=== PATIENT | male | born 1955 | race Caucasian/White ===

== ENCOUNTER 2019-03-22 18:29 | Emergency (ER) | payer MEDICARE, OTHER ==
[~2019-03-22] VITALS: Ht 175.3 cm; Wt 81.5 kg
[2019-03-22] MEDS ORDERED: DOXY100T (18:39)
[2019-03-22] MEDS ORDERED: ATOR1TAB21 (18:39)
[2019-03-22] MEDS ORDERED: AMLO5TAB6 (18:39)
[2019-03-22] MEDS ORDERED: GABA-845 (18:39)
[2019-03-22] MEDS ORDERED: CYCL10TA (18:39)
[2019-03-22] MEDS ORDERED: HYDR25TAB (18:39)
[2019-03-22 19:59] LABS: HEMATOCRIT 47.1 % (42.0-52.0); HEMOGLOBIN 15.6 g/dl (13.5-17.5); MEAN CORPUSCULAR HGB CONC 33.1 g/dl (32.0-36.5); MEAN CORPUSCULAR VOLUME 93.5 fl (80.0-96.0); PLATELET COUNT, AUTOMATED 331 10^3/uL (150-450); RED BLOOD COUNT 5.04 10^6/uL (4.30-6.10); WHITE BLOOD COUNT 9.7 10^3/uL (4.0-10.0)
[2019-03-22 20:08] LABS: BLOOD UREA NITROGEN 10 MG/DL (7-18); CALCIUM LEVEL 8.8 MG/DL (8.8-10.2); CARBON DIOXIDE LEVEL 30 MEQ/L (21-32); CHLORIDE LEVEL 100 MEQ/L (98-107); CREATININE FOR GFR 1.19 MG/DL (0.70-1.30); GLOMERULAR FILTRATION RATE > 60.0 (>49); GLUCOSE, FASTING 120 MG/DL (70-100); POTASSIUM SERUM 3.5 MEQ/L (3.5-5.1); SODIUM LEVEL 136 MEQ/L (136-145)
[2019-03-22 20:37] LABS: ERYTHROCYTE SEDIMENTATION RATE 17 mm/hr (0-20)
[2019-03-22 20:39] LABS: ALBUMIN 3.7 GM/DL (3.2-5.2); BILIRUBIN,DIRECT 0.2 MG/DL (0.0-0.2); BILIRUBIN,TOTAL 0.6 MG/DL (0.2-1.0); TOTAL PROTEIN 7.9 GM/DL (6.4-8.2)
[2019-03-22 22:49] LABS: BASO % 0.4 % (0.0-1.0); EOS # 0.1 10^3/uL (0.0-0.5); EOS % 1.4 % (0.0-3.0); LYMPH # 1.1 10^3/uL (1.5-5.0); LYMPH % 11.2 % (24.0-44.0); MONO # 0.7 10^3/uL (0.0-0.8); MONO % 7.3 % (0.0-5.0); NEUTROPHILS # 7.8 10^3/uL (1.5-8.5); NEUTROPHILS % 79.2 % (36.0-66.0)
[2019-03-22 22:52] LABS: PLATELET ESTIMATE NORMAL (NORMAL)
[2019-03-22] MEDS ORDERED: KETOROLAC 30 MG/ML VIAL (J1885) IV ONE (23:00)
[2019-03-22] MEDS ORDERED: KETO10TAB PO (23:07)
[2019-03-22] MEDS ORDERED: DALBAVANCIN 1,500 MG in D5W 250 ML IV ONE (23:30)
[2019-03-23 00:15] VITALS: BP 138/62
--- NOTE | 2019-03-23 08:32 | REP ---
Left elbow series: Four views. History: Pain. Fracture. Findings: Four views of the left elbow demonstrate tendon insertion site spurring at the medial and lateral epicondyles as well as in the acromion process. There is some coronoid process spurring as well. There is soft tissue swelling about the olecranon on lateral radiograph. The olecranon spur appears to be fragmented but this does not appear to be an acute fracture. No joint effusion is seen. Impression: Fragmented olecranon process spurring. Soft tissue swelling about the olecranon and dorsally over the proximal ulna. Medial and lateral epicondylar spurring and coronoid process spurring are also noted. Electronically Signed by Edgard Mack MD 03/23/2019 10:21 A
== END 2019-03-23 00:17 | disposition home or self-care (01) ==
LOC: M ED 18:29
DX: L03.112 Cellulitis of left axilla (principal); Z88.8 Allergy status to other drugs, medicaments and biological substances; Z79.899 Other long term (current) drug therapy
CPT/HCPCS: 73080; 80048; 80076; 83605; 85027; 85652; 86140; 87040; 96365; 96374; 99284; J0875; J1885

== ENCOUNTER 2019-10-16 03:25 | Emergency (ER) | payer MEDICARE ==
[~2019-10-16] VITALS: Ht 175.3 cm; Wt 84.5 kg
[~2019-10-16 03:25] MED LIST: AMLO1TAB24; ATOR1TAB21; CYCL-707; DOXY100T; GABA-845; HYDR-3490; KETO10TAB PO
[2019-10-16 03:47] LABS: BASO % 0.2 % (0.0-1.0); EOS # 0.3 10^3/uL (0.0-0.5); EOS % 2.9 % (0.0-3.0); HEMOGLOBIN 13.4 g/dl (13.5-17.5); LYMPH # 1.3 10^3/uL (1.5-5.0); MEAN CORPUSCULAR HEMOGLOBIN 30.3 pg (27.0-33.0); MEAN CORPUSCULAR HGB CONC 33.5 g/dl (32.0-36.5); MEAN CORPUSCULAR VOLUME 90.5 fl (80.0-96.0); MONO # 0.8 10^3/uL (0.0-0.8); NEUTROPHILS # 6.2 10^3/uL (1.5-8.5); NEUTROPHILS % 72.6 % (36.0-66.0); PLATELET COUNT, AUTOMATED 279 10^3/uL (150-450); RED BLOOD COUNT 4.42 10^6/uL (4.30-6.10); WHITE BLOOD COUNT 8.6 10^3/uL (4.0-10.0)
[2019-10-16 04:30] LABS: BLOOD UREA NITROGEN 12 MG/DL (7-18); CALCIUM LEVEL 8.4 MG/DL (8.8-10.2); CARBON DIOXIDE LEVEL 27 MEQ/L (21-32); CHLORIDE LEVEL 107 MEQ/L (98-107); CK-MB VALUE MASS 1.8 NG/ML (<3.6); CPK CREATINE PHOSPHOKINASE 128 U/L (39-308); CREATININE FOR GFR 1.04 MG/DL (0.70-1.30); GLOMERULAR FILTRATION RATE > 60.0 (>49); GLUCOSE, FASTING 99 MG/DL (70-100); MB/CK RELATIVE INDEX 1.41 (< OR =4); POTASSIUM SERUM 3.3 MEQ/L (3.5-5.1); SODIUM LEVEL 139 MEQ/L (136-145); TROPONIN I < 0.02 NG/ML (< 0.10)
[2019-10-16] MEDS ORDERED: NS 500 ML IV ONE (05:00)
[2019-10-16] MEDS ORDERED: KETOROLAC 30 MG/ML 1ML VIAL IV ONE (05:00)
[2019-10-16] MEDS ORDERED: ISOVUE-370 76% 100ML VIAL As Ordered ONE (05:11)
[2019-10-16 05:20] LABS: INR 1.08; PROTHROMBIN TIME 13.7 SECONDS (11.8-14.0)
[2019-10-16 05:30] VITALS: BP 163/89
--- NOTE | 2019-10-16 05:50 | REPVR ---
PROCEDURE INFORMATION: Exam: CT Angiography Chest With Contrast Exam date and time: 10/16/2019 5:27 AM Age: 64 years old Clinical indication: Chest pain; Additional info: Cp TECHNIQUE: Imaging protocol: Computed tomographic angiography of the chest with intravenous contrast. 3D rendering: MIP and/or 3D reconstructed images were created by the technologist. Radiation optimization: All CT scans at this facility use at least one of these dose optimization techniques: automated exposure control; mA and/or kV adjustment per patient size (includes targeted exams where dose is matched to clinical indication); or iterative reconstruction. Contrast material: ISO 370; Contrast volume: 75 ml; Contrast route: IV; COMPARISON: CR PORTABLE CHEST X-RAY 10/16/2019 3:34 AM FINDINGS: Pulmonary arteries: The main pulmonary artery measures 26 mm. No pulmonary embolism is identified. Aorta: The ascending thoracic aorta measures 37 mm. Lungs: Minimal bibasilar fibro-atelectatic change and question of minimal infiltrates in the posterior costophrenic sulci. Pleural space: Unremarkable. No pneumothorax. No pleural effusion. Heart: Unremarkable. No cardiomegaly. No pericardial effusion. Lymph nodes: Unremarkable. No enlarged lymph nodes. Bones/joints: Unremarkable. No acute fracture. Soft tissues: Unremarkable. IMPRESSION: 1. Minimal bibasilar fibro-atelectatic change the and question of minimal infiltrates posteriorly inferiorly. 2. Otherwise negative CTA chest. No pulmonary embolism is identified. Electronically signed by: Travis Waters On 10/16/2019 05:50:11 AM
[2019-10-16 05:53] LABS: CK-MB VALUE MASS 1.2 NG/ML (<3.6); CPK CREATINE PHOSPHOKINASE 141 U/L (39-308); MB/CK RELATIVE INDEX 0.85 (< OR =4); TROPONIN I < 0.02 NG/ML (< 0.10)
[2019-10-16] MEDS ORDERED: KETO10TAB PO (06:15)
--- NOTE | 2019-10-16 09:53 | REP ---
CHEST, SINGLE VIEW: Single view of the chest is performed and compared to prior study of 04/15/2007. Bibasilar fibroatelectatic change is noted. There is mild elevation of the left hemidiaphragm. No consolidating infiltrate is seen. The heart is not enlarged. Mediastinal silhouette is unremarkable. A metallic screw is seen in the right glenoid. IMPRESSION: Mild bibasilar fibroatelectatic change. No evidence of acute infiltrate. Electronically Signed by Олег Forrester MD 10/16/2019 10:27 A
--- NOTE | 2019-10-16 19:51 | ECGEPIP ---
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
== END 2019-10-16 06:47 | disposition home or self-care (01) ==
LOC: M ED 03:25
DX: R07.89 Other chest pain (principal); I10 Essential (primary) hypertension; E78.5 Hyperlipidemia, unspecified; R01.1 Cardiac murmur, unspecified; Z79.899 Other long term (current) drug therapy; Z88.8 Allergy status to other drugs, medicaments and biological substances; F17.210 Nicotine dependence, cigarettes, uncomplicated
CPT/HCPCS: 71045; 71275; 80048; 82550; 82553; 84484; 85025; 85610; 85730; 93005; 93041; 94760; 96361; 96374; 99285; J1885; Q9967

== ENCOUNTER → 2020-05-16 | Outpatient (CLI) | payer MEDICARE ==
[~2020-05-16] MED LIST changes: -HYDR-3490; +HYDR25TAB
[2020-05-16 16:49] LABS: C REACTIVE PROTEIN QUANTITATIV 0.41 MG/DL (0.00-0.30); RHEUMATOID FACTOR QUANT < 10.0 IU/ML (<15.0); URIC ACID 7.3 MG/DL (3.5-7.2)
== END ==
LOC: M LAB 15:18
PROVIDERS: ATTEND Nurse Practitioner Family
DX: M79.641 Pain in right hand (principal); M79.642 Pain in left hand; M89.29 Other disorders of bone development and growth, multiple sites

== ENCOUNTER 2020-08-15 06:21 | Emergency (ER) | payer MEDICARE ==
[~2020-08-15] VITALS: Ht 175.3 cm; Wt 91.2 kg
[~2020-08-15 06:21] MED LIST changes: +HYDR-3490; -HYDR25TAB
[2020-08-15] MEDS ORDERED: NS 1,000 ML IV SCH (07:13)
[2020-08-15] MEDS ORDERED: MORPHINE 2 MG/ML 1ML VIAL (J2270) IV ONE (07:15)
[2020-08-15] MEDS ORDERED: ONDANSETRON 4MG/2ML VIAL IV ONE (07:15)
[2020-08-15 07:45] LABS: BASO % 0.1 % (0.0-1.0); EOS % 0.1 % (0.0-3.0); HEMATOCRIT 43.7 % (42.0-52.0); HEMOGLOBIN 14.9 g/dl (13.5-17.5); LYMPH # 0.8 10^3/uL (1.5-5.0); LYMPH % 11.6 % (24.0-44.0); MEAN CORPUSCULAR HGB CONC 34.1 g/dl (32.0-36.5); MEAN CORPUSCULAR VOLUME 87.9 fl (80.0-96.0); MONO # 0.3 10^3/uL (0.0-0.8); MONO % 4.8 % (2.0-8.0); NEUTROPHILS # 5.7 10^3/uL (1.5-8.5); NEUTROPHILS % 83.3 % (36.0-66.0); PLATELET COUNT, AUTOMATED 261 10^3/uL (150-450); RED BLOOD COUNT 4.97 10^6/uL (4.30-6.10); WHITE BLOOD COUNT 6.8 10^3/uL (4.0-10.0)
[2020-08-15 08:07] LABS: INR 0.97; PROTHROMBIN TIME 13.1 SECONDS (12.5-14.3)
[2020-08-15 08:08] LABS: PARTIAL THROMBOPLASTIN TIME 33.5 SECONDS (24.2-38.5)
[2020-08-15 08:13] LABS: ALBUMIN 4.1 GM/DL (3.2-5.2); ALT/SGPT 36 U/L (12-78); BILIRUBIN,DIRECT 0.2 MG/DL (0.0-0.2); BILIRUBIN,TOTAL 0.4 MG/DL (0.2-1.0); CPK CREATINE PHOSPHOKINASE 467 U/L (39-308); LIPASE 126 U/L (73-393); TOTAL PROTEIN 7.7 GM/DL (6.4-8.2); TROPONIN I < 0.02 NG/ML (< 0.10)
--- NOTE | 2020-08-15 08:28 | REP ---
INDICATION: SBO. COMPARISON: CT and AP chest 10/16/2019 TECHNIQUE: PA chest with two-view abdomen FINDINGS: PA chest: Lungs are adequately inflated. There is linear fibrotic change at the left lateral base and bibasilar fibro atelectatic change stable from the previous study. No pleural effusion or dense consolidation. No parenchymal mass. Some minor apical pleural scarring noted. Heart size not grossly enlarged. Epicardial fat pad prominent on the left as on CT. No chamber enlargement, vascular redistribution or pulmonary edema. The aorta is mildly tortuous but without aneurysm. Airway intact. No widening of the mediastinum. Hilar contours fairly symmetric and normal. There are degenerative changes in the spine and shoulders. No free air under the diaphragm. Flat and upright abdomen: Moderate retained stool in the right and transverse colon scattered stool in the left colon and rectosigmoid. I do not see significant constipation. Small bowel loops are fluid-filled. I do not see dilated loops or air-fluid levels on the upright view. No evidence of free air. Bones show some degenerative changes in the lumbar and lower thoracic endplates. Minor degenerative changes of the hips and lower lumbar facets. Few pelvic phleboliths are noted. No definite calcifications over the renal fossae, expected course of the ureters or bladder. IMPRESSION: 1. Mild retained stool throughout, most in the right transverse colon but no abnormal distension. I would regard this is normal. Small bowel loops are fluid-filled without dilatation or air-fluid levels. This may reflect some gastroenteritis or mild ileus. No free air. 2. Basilar fibro atelectatic changes and some linear fibrosis left lateral base unchanged. No acute infiltrate, cardiomegaly, edema, pleural effusion or other significant finding in the chest. <Electronically signed by Rian More > 08/15/20 [id number]
[2020-08-15] MEDS ORDERED: LIDOCAINE 2% 5ML JELLY UROJET TOP ONE (08:30)
[2020-08-15] MEDS ORDERED: FLOM0.4C39 PO (10:52)
[2020-08-15 11:34] VITALS: BP 142/89
== END 2020-08-15 11:15 | disposition home or self-care (01) ==
LOC: M ED 06:21
DX: R33.9 Retention of urine, unspecified (principal); I10 Essential (primary) hypertension; E78.5 Hyperlipidemia, unspecified; Z79.899 Other long term (current) drug therapy
CPT/HCPCS: 51702; 74021; 80047; 80076; 82550; 82553; 83690; 84484; 85025; 85610; 85730; 86850; 86900; 86901; 87086; 93041; 96361; 96374; 96375; 99285; J2270; J2405

== ENCOUNTER 2020-09-14 19:26 | Emergency (ER) | payer MEDICARE ==
[~2020-09-14] VITALS: Ht 175.3 cm; Wt 86.3 kg
[~2020-09-14 19:26] MED LIST changes: +FLOM0.4C39 PO
[2020-09-14] MEDS ORDERED: FINA5TAB2 (19:42)
[2020-09-14 20:05] LABS: BASO % 0.5 % (0.0-1.0); EOS # 0.2 10^3/uL (0.0-0.5); EOS % 3.4 % (0.0-3.0); HEMATOCRIT 39.5 % (42.0-52.0); HEMOGLOBIN 13.3 g/dl (13.5-17.5); LYMPH # 1.7 10^3/uL (1.5-5.0); LYMPH % 30.4 % (24.0-44.0); MEAN CORPUSCULAR HEMOGLOBIN 29.7 pg (27.0-33.0); MEAN CORPUSCULAR HGB CONC 33.7 g/dl (32.0-36.5); MEAN CORPUSCULAR VOLUME 88.2 fl (80.0-96.0); MONO # 0.6 10^3/uL (0.0-0.8); MONO % 11.5 % (2.0-8.0); PLATELET COUNT, AUTOMATED 307 10^3/uL (150-450); RED BLOOD COUNT 4.48 10^6/uL (4.30-6.10); WHITE BLOOD COUNT 5.6 10^3/uL (4.0-10.0)
[2020-09-14] MEDS ORDERED: COMBIVENT RESPIMAT 100-20MCG INHALER 4GM INH ONE (20:10)
[2020-09-14] MEDS ORDERED: ISOVUE-370 76% 100ML VIAL As Ordered ONE (20:18)
[2020-09-14 20:19] LABS: INR 1.08; PROTHROMBIN TIME 14.2 SECONDS (12.5-14.3)
--- NOTE | 2020-09-14 20:34 | REPVR ---
PROCEDURE INFORMATION: Exam: XR Chest Exam date and time: 09/14/2020 8:17 PM Age: 65 years old Clinical indication: Other: Chest pain TECHNIQUE: Imaging protocol: XR of the chest. Views: 1 view. COMPARISON: CR Abdomen,Flat Upright,PA CHEST 08/15/2020 8:00 AM FINDINGS: Lungs: Unremarkable. No consolidation. Pleural spaces: Unremarkable. No pleural effusion. No pneumothorax. Heart/Mediastinum: Unremarkable. No cardiomegaly. Bones/joints: Unremarkable. IMPRESSION: No acute findings. Electronically signed by: aR Martin On 09/14/2020 20:33:37 PM
[2020-09-14 20:43] LABS: ALBUMIN 3.7 GM/DL (3.2-5.2); ALT/SGPT 28 U/L (12-78); BILIRUBIN,DIRECT 0.1 MG/DL (0.0-0.2); BILIRUBIN,TOTAL 0.3 MG/DL (0.2-1.0); BLOOD UREA NITROGEN 20 MG/DL (7-18); CALCIUM LEVEL 8.7 MG/DL (8.8-10.2); CARBON DIOXIDE LEVEL 29 MEQ/L (21-32); CHLORIDE LEVEL 106 MEQ/L (98-107); CK-MB VALUE MASS 1.7 NG/ML (<3.6); CPK CREATINE PHOSPHOKINASE 208 U/L (39-308); CREATININE FOR GFR 1.21 MG/DL (0.70-1.30); ETHYL ALCOHOL (ETHANOL) < 0.003 % (0.000-0.010); GLOMERULAR FILTRATION RATE > 60.0 (>49); GLUCOSE, FASTING 115 MG/DL (70-100); LIPASE 90 U/L (73-393); MB/CK RELATIVE INDEX 0.82 (< OR =4); POTASSIUM SERUM 3.1 MEQ/L (3.5-5.1); SODIUM LEVEL 142 MEQ/L (136-145); TOTAL PROTEIN 7.3 GM/DL (6.4-8.2); TROPONIN I < 0.02 NG/ML (< 0.10)
--- NOTE | 2020-09-14 20:59 | REPVR ---
PROCEDURE INFORMATION: Exam: CTA Chest With Contrast Exam date and time: 09/14/2020 8:34 PM Age: 65 years old Clinical indication: Chest pain; Other: Pleuritic; Additional info: Left sided pleuritic chest pain TECHNIQUE: Imaging protocol: Computed tomographic angiography of the chest with contrast. 3D rendering (Not supervised by radiologist): MIP and/or 3D reconstructed images were created by the technologist. Radiation optimization: All CT scans at this facility use at least one of these dose optimization techniques: automated exposure control; mA and/or kV adjustment per patient size (includes targeted exams where dose is matched to clinical indication); or iterative reconstruction. Contrast material: ISOVUE 370; Contrast volume: 75 ml; Contrast route: INTRAVENOUS (IV); COMPARISON: CT ANGIO CHEST 10/16/2019 5:07 AM FINDINGS: Pulmonary arteries: Normal. No pulmonary emboli. Aorta: There is fusiform dilatation of the ascending thoracic aorta which measures 4 cm. maximally. There is no dissection or saccular component. There is mild atherosclerosis in the thoracic aorta. Lungs: 5 mm noncalcified nodule adjacent to the major fissure right lower lobe. 3 mm subpleural noncalcified nodule right lower lobe. Findings likely postinflammatory. Lungs otherwise clear. Pleural spaces: Unremarkable. No pneumothorax. No pleural effusion. Heart: There is mild atherosclerotic calcification of the coronary arteries. Lymph nodes: Unremarkable. No enlarged lymph nodes. Bones/joints: Arthropathic changes right glenohumeral joint. There is endplate irregularity at the 3 through 5th costochondral junctions on the left possibly indicating costochondritis, acute or chronic. The spine demonstrates mild degenerative changes. Soft tissues: Unremarkable. IMPRESSION: 1. 5 mm noncalcified nodule adjacent to the major fissure right lower lobe. 3 mm subpleural noncalcified nodule right lower lobe. Findings likely postinflammatory. For patients at low risk (minimal or absent history of smoking and of other known risk factors), no routine follow-up is indicated. For patients at high risk (history of smoking or of other known risk factors), consider optional CT Chest at 12 months. (Reference: Candido) 2. There is endplate irregularity at the 3 through 5th costochondral junctions on the left possibly indicating costochondritis, acute or chronic. 3. There is fusiform dilatation of the ascending thoracic aorta which measures 4 cm. maximally. There is no dissection or saccular component. 4. There are no pulmonary emboli. REFERENCES: Candido Stuart, et al. Guidelines for Management of Incidental Pulmonary Nodules Detected on CT Images: From the Fleischner Society 2017. Radiology. 2017;284(1):228-243. Electronically signed by: Ra Martin On 09/14/2020 20:59:15 PM
[2020-09-14] MEDS ORDERED: KETOROLAC 30 MG/ML 1ML VIAL IV ONE (22:15)
[2020-09-14] MEDS ORDERED: NAPR-837 PO (22:15)
[2020-09-14] MEDS ORDERED: POTASSIUM CHLORIDE 10 MEQ SR TABLET PO ONE (22:15)
[2020-09-14 22:44] VITALS: BP 123/95
--- NOTE | 2020-09-15 06:24 | ECGEPIP ---
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
--- NOTE | 2020-09-15 07:10 | ED PDOC ---
Post-Departure [facility] faxed formal report of cta chest for fu Luis Alfredo Hebert MD September 15, 2020 07:10
== END 2020-09-14 23:05 | disposition home or self-care (01) ==
LOC: M ED 19:26
DX: M94.0 Chondrocostal junction syndrome [Tietze] (principal); R91.8 Other nonspecific abnormal finding of lung field; I11.9 Hypertensive heart disease without heart failure; Z87.891 Personal history of nicotine dependence
CPT/HCPCS: 71045; 71275; 80047; 80048; 80076; 82077; 82550; 82553; 83690; 84484; 85025; 85610; 87798; 93005; 93041; 94760; 96374; 99285; J1885; Q9967

== ENCOUNTER → 2020-10-01 | Outpatient (CLI) | payer MEDICARE ==
[~2020-10-01] MED LIST changes: +FINA5TAB2; +GABA-283; -GABA-845; +NAPR-837 PO
== END ==
LOC: M LAB 08:20
PROVIDERS: ATTEND Urology
DX: Z12.5 Encounter for screening for malignant neoplasm of prostate (principal)
CPT/HCPCS: 36415; G0103

== ENCOUNTER → 2022-08-04 | Outpatient (CLI) | payer MEDICARE | LOC: M PLALAB 12:46 | PROVIDERS: ATTEND Physician Assistant | DX: Z12.5 Encounter for screening for malignant neoplasm of prostate (principal) | CPT/HCPCS: 36415; G0103 ==

== ENCOUNTER → 2022-10-07 | Outpatient (CLI) | payer MEDICARE ==
[2022-10-07 17:26] LABS: CALCIUM LEVEL 8.7 MG/DL (8.3-10.6); CREATININE FOR GFR 1.29 MG/DL (0.70-1.30); POTASSIUM SERUM 4.4 MMOL/L (3.5-5.1)
== END ==
LOC: M PLALAB 14:09
PROVIDERS: ATTEND Pediatrics
DX: E87.6 Hypokalemia (principal)

== ENCOUNTER 2024-01-09 06:52 | Emergency (ER) | payer MEDICARE, OTHER ==
[~2024-01-09] VITALS: Ht 172.7 cm; Wt 79.9 kg
[~2024-01-09 06:52] MED LIST changes: -GABA-283; +GABA-284
[2024-01-09] MEDS: ACETAMINOPHEN TAB 650MG DOSE (2X325MG) PO ONE (07:58)
[2024-01-09] MEDS ORDERED: DOXY100C82 PO (09:16)
[2024-01-09 09:40] VITALS: BP 117/80; TEMP 98.8; O2SAT 95
== END 2024-01-09 09:42 | disposition home or self-care (01) ==
LOC: M ED 06:52
DX: J18.1 Lobar pneumonia, unspecified organism (principal); I10 Essential (primary) hypertension; N40.0 Benign prostatic hyperplasia without lower urinary tract symptoms; Z87.891 Personal history of nicotine dependence; Z79.02 Long term (current) use of antithrombotics/antiplatelets; Z79.2 Long term (current) use of antibiotics; Z79.899 Other long term (current) drug therapy

== ENCOUNTER 2024-01-16 06:45 | Emergency (ER) | payer OTHER, MEDICAID ==
[~2024-01-16] VITALS: Ht 175.3 cm; Wt 77.8 kg
[~2024-01-16 06:45] MED LIST changes: -AMLO1TAB24; +AMLO1TAB24 PO; -ATOR1TAB21; +ATOR1TAB21 PO; -CYCL-707; +CYCL-707 PO; +DOXY100C82 PO; -FINA5TAB2; +FINA5TAB2 PO; -HYDR-3490; +HYDR-3490 PO
[2024-01-16 09:31] LABS: VENOUS BASE EXCESS -0.5 (-2.0-2.0); VENOUS HCO3 27.3 MMOL/L (23.0-27.0); VENOUS O2 SATURATION 38.4 % (60.0-80.0); VENOUS PARTIAL PRESSURE CO2 56.8 mmHg (38.0-50.0); VENOUS PARTIAL PRESSURE O2 24.1 mmHg (30.0-50.0); VENOUS PH 7.299 UNITS (7.330-7.430); VENOUS STANDARD HCO3 22.6 MMOL/L
[2024-01-16 09:44] LABS: BASO % 0.6 % (0.0-1.0); EOS # 0.2 10^3/uL (0.0-0.5); EOS % 3.9 % (0.0-3.0); HEMATOCRIT 45.8 % (42.0-52.0); LYMPH # 1.8 10^3/uL (1.5-5.0); LYMPH % 34.6 % (24.0-44.0); MEAN CORPUSCULAR HGB CONC 32.8 g/dl (32.0-36.5); MEAN CORPUSCULAR VOLUME 91.6 fl (80.0-96.0); MONO # 0.5 10^3/uL (0.0-0.8); NEUTROPHILS # 2.6 10^3/uL (1.5-8.5); NEUTROPHILS % 50.9 % (36.0-66.0); PLATELET COUNT, AUTOMATED 490 10^3/uL (150-450); WHITE BLOOD COUNT 5.1 10^3/uL (4.0-10.0)
[2024-01-16] MEDS: NS 500 ML IV ONE (09:51)
[2024-01-16 10:04] LABS: ALBUMIN 3.6 G/DL (3.2-5.2); ALKALINE PHOSPHATASE 108 U/L (46-116); ALT/SGPT 103 U/L (7.0-40); AST/SGOT 39 U/L (<34); BILIRUBIN,DIRECT 0.2 MG/DL (<0.4); BILIRUBIN,TOTAL 0.4 MG/DL (0.3-1.2); BLOOD UREA NITROGEN 17 MG/DL (9-23); CALCIUM LEVEL 9.5 MG/DL (8.3-10.6); CARBON DIOXIDE LEVEL 28 MMOL/L (20-31); CHLORIDE LEVEL 107 MMOL/L (98-107); CREATININE FOR GFR 0.98 MG/DL (0.70-1.30); GLOMERULAR FILTRATION RATE > 60.0 (>49); GLUCOSE, FASTING 85 MG/DL (74-106); POTASSIUM SERUM 4.5 MMOL/L (3.5-5.1); SODIUM LEVEL 141 MMOL/L (136-145); TOTAL PROTEIN 7.7 G/DL (5.7-8.2)
[2024-01-16 10:12] LABS: ABG BASE EXCESS -0.5 (-2.0-2.0); ABG HCO3 23.4 MMOL/L (22.0-26.0); ABG O2 SATURATION 95.5 % (95.0-99.0); ABG PARTIAL PRESSURE CO2 36.1 mmHg (35.0-45.0); ABG PARTIAL PRESSURE O2 80.8 mmHg (75.0-100.0); ABG STANDARD HCO3 24.1 MMOL/L. (22.0-26.0); ABG TOTAL CO2 24.5 MMOL/L (23.0-31.0)
[2024-01-16] MEDS: IPRATROPIUM 0.5MG/ALBUTEROL 2.5MG INH SOL UD 3ML (DUONEB) NEB ONE (10:20)
[2024-01-16] MEDS ORDERED: ISOVUE-370 76% 100ML VIAL As Ordered ONE (11:10)
[2024-01-16 12:40] VITALS: O2SAT 97
[2024-01-16] MEDS ORDERED: MAG SULF 1GM/100ML (MAG RUN) 1 GM in IV 1 EA IV ONE (13:25)
[2024-01-16] MEDS ORDERED: LEVO750T14 PO (13:37)
[2024-01-16] MEDS: MAG SULF 1GM/100ML (MAG RUN) 1 GM in IV 1 EA IV ONE (13:50)
[2024-01-16 14:45] VITALS: O2SAT 99
[2024-01-16 14:46] VITALS: BP 131/73; TEMP 97.6
== END 2024-01-16 15:12 | disposition home or self-care (01) ==
LOC: M ED 06:45
DX: J18.9 Pneumonia, unspecified organism (principal); E83.42 Hypomagnesemia; I10 Essential (primary) hypertension; E78.5 Hyperlipidemia, unspecified; N40.0 Benign prostatic hyperplasia without lower urinary tract symptoms; M79.7 Fibromyalgia; Z87.891 Personal history of nicotine dependence; Z79.02 Long term (current) use of antithrombotics/antiplatelets; Z79.899 Other long term (current) drug therapy; Z79.2 Long term (current) use of antibiotics
CPT/HCPCS: 36600; 71046; 71275; 80048; 80076; 82803; 83605; 83735; 83880; 85025; 87040; 87486; 87581; 87633; 87798; 93005; 93041; 94640; 94760; 96361; 96365; 99285; J3475; Q9967

== ENCOUNTER 2024-01-22 19:56 | Observation (INO) | payer OTHER, MEDICAID ==
[~2024-01-22] VITALS: Ht 172.7 cm; Wt 75.1 kg
[~2024-01-22 19:56] MED LIST changes: +LEVO750T14 PO
[2024-01-22 22:03] LABS: BASO % 0.6 % (0.0-1.0); EOS # 0.1 10^3/uL (0.0-0.5); EOS % 1.6 % (0.0-3.0); HEMATOCRIT 45.4 % (42.0-52.0); HEMOGLOBIN 15.2 g/dl (13.5-17.5); LYMPH # 1.8 10^3/uL (1.5-5.0); LYMPH % 28.2 % (24.0-44.0); MEAN CORPUSCULAR HEMOGLOBIN 30.5 pg (27.0-33.0); MEAN CORPUSCULAR HGB CONC 33.5 g/dl (32.0-36.5); MEAN CORPUSCULAR VOLUME 91.2 fl (80.0-96.0); MONO # 0.6 10^3/uL (0.0-0.8); MONO % 9.2 % (2.0-8.0); NEUTROPHILS # 3.8 10^3/uL (1.5-8.5); NEUTROPHILS % 60.2 % (36.0-66.0); PLATELET COUNT, AUTOMATED 484 10^3/uL (150-450); RED BLOOD COUNT 4.98 10^6/uL (4.30-6.10); WHITE BLOOD COUNT 6.3 10^3/uL (4.0-10.0)
[2024-01-22 22:34] LABS: CPK CREATINE PHOSPHOKINASE 55 U/L (46-171)
[2024-01-22 22:35] LABS: ALBUMIN 3.8 G/DL (3.2-5.2); ALKALINE PHOSPHATASE 86 U/L (46-116); ALT/SGPT 40 U/L (7.0-40); AST/SGOT 17 U/L (<34); BILIRUBIN,DIRECT 0.3 MG/DL (<0.4); BILIRUBIN,TOTAL 0.7 MG/DL (0.3-1.2); BLOOD UREA NITROGEN 23 MG/DL (9-23); CALCIUM LEVEL 9.9 MG/DL (8.3-10.6); CARBON DIOXIDE LEVEL 26 MMOL/L (20-31); CHLORIDE LEVEL 110 MMOL/L (98-107); CK-MB VALUE MASS < 1.0 NG/ML (<3.6); CREATININE FOR GFR 1.22 MG/DL (0.70-1.30); GLOMERULAR FILTRATION RATE > 60.0 (>49); GLUCOSE, FASTING 104 MG/DL (74-106); MB/CK RELATIVE INDEX 1.81 (< OR =4); POTASSIUM SERUM 4.5 MMOL/L (3.5-5.1); SODIUM LEVEL 142 MMOL/L (136-145); TOTAL PROTEIN 7.6 G/DL (5.7-8.2)
[2024-01-23] MEDS: IPRATROPIUM 0.5MG/ALBUTEROL 2.5MG INH SOL UD 3ML (DUONEB) NEB ONE (00:57)
[2024-01-23] MEDS: methylPREDNISolone 125MG 2ML VIAL IV ONE (01:00)
[2024-01-23] MEDS ORDERED: ALBUTEROL 90 MCG/ACT 8GM HFA INHALER INH ONE (02:40)
[2024-01-23] MEDS ORDERED: PRED20TA PO (02:43)
[2024-01-23] MEDS: ALBUTEROL 90 MCG/ACT 8GM HFA INHALER INH ONE (02:45)
[2024-01-23] MEDS ORDERED: ACETAMINOPHEN TAB 650MG DOSE (2X325MG) PO PRN (04:05)
[2024-01-23] MEDS ORDERED: MOM 30ML SUSPENSION UDC PO PRN (04:05)
[2024-01-23] MEDS ORDERED: LEVO1TAB40 PO (04:51)
[2024-01-23] MEDS ORDERED: TAMS1CAP17 PO (04:51)
[2024-01-23] MEDS ORDERED: GABA-1171 PO (04:51)
[2024-01-23] MEDS ORDERED: MAGN400T2 PO (04:53)
[2024-01-23] MEDS ORDERED: CO Q100C10 PO (04:53)
[2024-01-23] MEDS ORDERED: HOME MED LIST COMPLETE! XX SCH (04:55)
[2024-01-23 06:15] VITALS: BP 119/57; TEMP 97.2; O2SAT 97
[2024-01-23] MEDS: IPRATROPIUM 0.5MG/ALBUTEROL 2.5MG INH SOL UD 3ML (DUONEB) NEB SCH ×2 (08:07→11:04)
[2024-01-23] MEDS: predniSONE 20 MG TAB PO SCH (08:26)
[2024-01-23] MEDS: DOCUSATE SODIUM 100MG CAPSULE PO SCH (08:26)
[2024-01-23] MEDS ORDERED: IPRATROPIUM 0.5MG/ALBUTEROL 2.5MG INH SOL UD 3ML (DUONEB) NEB PRN (10:20)
[2024-01-23] MEDS ORDERED: VENTAER INH (10:37)
[2024-01-23] MEDS ORDERED: TIOT18INH INH (10:37)
[2024-01-23] MEDS ORDERED: BUDE180INH INH (10:37)
[2024-01-23] MEDS ORDERED: ATRO0.063 INH (10:37)
[2024-01-23] MEDS ORDERED: PRED10TA2 PO (10:40)
[2024-01-23] MEDS: TIOTROPIUM INHALER/CAPSULE (SPIRIVA) INH SCH (11:04)
[2024-01-23 12:00] VITALS: BP 111/71; TEMP 98.2; O2SAT 93
[2024-01-23] MEDS: BUDESONIDE 180MCG INHALER (PULMICORT FLEXHALER) INH SCH (14:34)
[2024-01-23] MEDS: methylPREDNISolone 125MG 2ML VIAL IV SCH (15:23)
[2024-01-23 17:06] LABS: HEMATOCRIT 42.9 % (42.0-52.0); HEMOGLOBIN 14.7 g/dl (13.5-17.5); LYMPH # 0.7 10^3/uL (1.5-5.0); LYMPH % 7.8 % (24.0-44.0); MEAN CORPUSCULAR HEMOGLOBIN 30.7 pg (27.0-33.0); MEAN CORPUSCULAR HGB CONC 34.3 g/dl (32.0-36.5); MEAN CORPUSCULAR VOLUME 89.6 fl (80.0-96.0); MONO # 0.1 10^3/uL (0.0-0.8); NEUTROPHILS % 90.6 % (36.0-66.0); PLATELET COUNT, AUTOMATED 471 10^3/uL (150-450); RED BLOOD COUNT 4.79 10^6/uL (4.30-6.10); WHITE BLOOD COUNT 8.9 10^3/uL (4.0-10.0)
[2024-01-23 17:33] LABS: BLOOD UREA NITROGEN 21 MG/DL (9-23); CALCIUM LEVEL 9.6 MG/DL (8.3-10.6); CARBON DIOXIDE LEVEL 18 MMOL/L (20-31); CHLORIDE LEVEL 110 MMOL/L (98-107); CREATININE FOR GFR 1.07 MG/DL (0.70-1.30); GLOMERULAR FILTRATION RATE > 60.0 (>49); GLUCOSE, FASTING 181 MG/DL (74-106); POTASSIUM SERUM 4.1 MMOL/L (3.5-5.1); SODIUM LEVEL 140 MMOL/L (136-145)
[2024-01-23 17:37] LABS: T UPTAKE 42.1 % (22.5-37.0); THYROID STIMULATING HORMONE 0.642 uIU/ML (0.55-4.78); THYROXINE (T4) 7.1 UG/DL (4.5-10.9)
[2024-01-23 17:40] LABS: PROCALCITONIN 0.09 ng/ml
[2024-01-23] MEDS: methylPREDNISolone 40MG 1ML VIAL IV SCH (18:39)
[2024-01-23 20:00] VITALS: BP_SYST 112; BP_SYST 120; BP_DIAS 59; BP_DIAS 72; TEMP 97; TEMP 97.9; O2SAT 95; O2SAT 98
[2024-01-23 21:00] VITALS: O2SAT 94
[2024-01-23 22:35] VITALS: BP 115/72; O2SAT 94
[2024-01-24 00:08] LABS: ALBUMIN 3.8 G/DL (3.2-5.2); ALKALINE PHOSPHATASE 95 U/L (46-116); ALT/SGPT 35 U/L (7.0-40); AST/SGOT 15 U/L (<34); BILIRUBIN,TOTAL 0.3 MG/DL (0.3-1.2); BLOOD UREA NITROGEN 21 MG/DL (9-23); CALCIUM LEVEL 9.3 MG/DL (8.3-10.6); CARBON DIOXIDE LEVEL 20 MMOL/L (20-31); CHLORIDE LEVEL 107 MMOL/L (98-107); GLOMERULAR FILTRATION RATE > 60.0 (>49); GLUCOSE, FASTING 215 MG/DL (74-106); MAGNESIUM LEVEL 1.8 MG/DL (1.8-2.4); POTASSIUM SERUM 4.1 MMOL/L (3.5-5.1); SODIUM LEVEL 137 MMOL/L (136-145); TOTAL PROTEIN 7.1 G/DL (5.7-8.2)
[2024-01-24 04:00] VITALS: BP 125/91; TEMP 97.9; O2SAT 95
[2024-01-24] MEDS: OMEPRAZOLE 20MG CAP PO SCH (08:24)
== END 2024-01-24 09:21 | disposition home or self-care (01) ==
LOC: M ED 19:56 → M ED INP 19:57 → UNDOADMOB 19:57 → M ED INP 01-23 04:04 → UNDOADMOB 01-23 04:04 → M ED INP 01-23 06:12 → M MSPAV 01-23 06:12 → UNDODISOB 01-24 09:21
PROVIDERS: ADMIT Student in an Organized Health Care Education/Training Program; ATTEND Student in an Organized Health Care Education/Training Program
DX: J96.00 Acute respiratory failure, unspecified whether with hypoxia or hypercapnia (principal); R06.00 Dyspnea, unspecified; R00.0 Tachycardia, unspecified; I10 Essential (primary) hypertension; E78.5 Hyperlipidemia, unspecified; Z87.891 Personal history of nicotine dependence; Z79.51 Long term (current) use of inhaled steroids; Z79.52 Long term (current) use of systemic steroids; Z79.899 Other long term (current) drug therapy
CPT/HCPCS: 36415; 71045; 80048; 80053; 80076; 82550; 82553; 83735; 83880; 84145; 84436; 84443; 84479; 84484; 85025; 87486; 87581; 87633; 87641; 87798; 93005; 93041; 94640; 94760; 96374; 96375; 96376; 97116; 97162; 99285; G0378; J2919; J7512

== ENCOUNTER → 2024-01-27 | Outpatient (CLI) | payer OTHER, MEDICAID ==
[~2024-01-27] MED LIST changes: +ATRO0.063 INH; +BUDE180INH INH; +CO Q100C10 PO; +GABA-1171 PO; +LEVO1TAB40 PO; +MAGN400T2 PO; +PRED10TA2 PO; +PRED20TA PO; +TAMS1CAP17 PO; +TIOT18INH INH; +VENTAER INH
== END ==
LOC: M PLALAB 10:14
PROVIDERS: ATTEND Physician Assistant
DX: Z12.5 Encounter for screening for malignant neoplasm of prostate (principal)
CPT/HCPCS: 36415; G0103

== ENCOUNTER 2024-08-11 18:58 | Emergency (ER) | payer OTHER, MEDICAID ==
[~2024-08-11] VITALS: Ht 175.3 cm; Wt 89.2 kg
[~2024-08-11 18:58] MED LIST changes: +BUDE180A2 INH; -BUDE180INH INH; +DOXY-442 PO; -DOXY100C82 PO; -LEVO750T14 PO; +LEVO75TAB PO
[2024-08-11 20:33] LABS: BASO % 0.4 % (0.0-1.0); EOS # 0.2 10^3/uL (0.0-0.5); EOS % 3.8 % (0.0-3.0); HEMATOCRIT 39.1 % (42.0-52.0); LYMPH # 1.6 10^3/uL (1.5-5.0); LYMPH % 31.3 % (24.0-44.0); MEAN CORPUSCULAR HEMOGLOBIN 30.4 pg (27.0-33.0); MEAN CORPUSCULAR HGB CONC 33.2 g/dl (32.0-36.5); MEAN CORPUSCULAR VOLUME 91.4 fl (80.0-96.0); MONO # 0.5 10^3/uL (0.0-0.8); MONO % 10.2 % (2.0-8.0); NEUTROPHILS # 2.7 10^3/uL (1.5-8.5); NEUTROPHILS % 54.1 % (36.0-66.0); PLATELET COUNT, AUTOMATED 217 10^3/uL (150-450); RED BLOOD COUNT 4.28 10^6/uL (4.30-6.10)
[2024-08-11 20:46] LABS: INR 1.06; PARTIAL THROMBOPLASTIN TIME 32.3 SECONDS (24.8-34.2); PROTHROMBIN TIME 14.1 SECONDS (12.5-14.5)
[2024-08-11] MEDS: NS (Normal Saline) 0.9% 1,000 ML IV ONE (22:54)
[2024-08-11] MEDS: KETOROLAC 30 MG/ML 1ML VIAL IV ONE (22:54)
[2024-08-12 01:00] VITALS: BP 130/61
[2024-08-12 01:02] VITALS: TEMP 98.1; O2SAT 98
== END 2024-08-12 01:59 | disposition home or self-care (01) ==
LOC: M ED 18:58
DX: R55 Syncope and collapse (principal); R51.9 Headache, unspecified; E78.5 Hyperlipidemia, unspecified; I10 Essential (primary) hypertension; G47.30 Sleep apnea, unspecified; N40.0 Benign prostatic hyperplasia without lower urinary tract symptoms; M79.7 Fibromyalgia; Z79.02 Long term (current) use of antithrombotics/antiplatelets; Z79.899 Other long term (current) drug therapy
CPT/HCPCS: 70450; 71045; 80047; 85025; 85610; 85730; 86850; 86900; 86901; 93005; 93041; 94760; 96361; 96374; 99285; J1885

== ENCOUNTER → 2024-09-26 | Outpatient (CLI) | payer OTHER, MEDICAID ==
[~2024-09-26] MED LIST changes: -FLOM0.4C39 PO; +TAMS-18 PO
[2024-09-26 17:38] LABS: HEMATOCRIT 39.9 % (42.0-52.0); HEMOGLOBIN 13.4 g/dl (13.5-17.5); MEAN CORPUSCULAR HGB CONC 33.6 g/dl (32.0-36.5); MEAN CORPUSCULAR VOLUME 89.3 fl (80.0-96.0); PLATELET COUNT, AUTOMATED 255 10^3/uL (150-450); RED BLOOD COUNT 4.47 10^6/uL (4.30-6.10); WHITE BLOOD COUNT 6.1 10^3/uL (4.0-10.0)
[2024-09-26 18:00] LABS: HEMOGLOBIN A1c 5.6 % (4.0-6.0)
[2024-09-26 18:13] LABS: BILIRUBIN,TOTAL 0.8 MG/DL (0.3-1.2); CALCIUM LEVEL 9.1 MG/DL (8.3-10.6); CHOLESTEROL RISK RATIO 2.23 (<5); CREATININE FOR GFR 1.19 MG/DL (0.70-1.30); GLOMERULAR FILTRATION RATE 65.7 (>42); HDL CHOLESTEROL 47.9 MG/DL (>40); LDL CHOLESTEROL 44.3 MG/DL (<100); NON-HDL-C 59.1 MG/DL; POTASSIUM SERUM 3.3 MMOL/L (3.5-5.1); TOTAL PROTEIN 6.8 G/DL (5.7-8.2)
[2024-09-26 18:16] LABS: THYROID STIMULATING HORMONE 1.469 uIU/ML (0.55-4.78)
[2024-09-26 18:17] LABS: TOTAL 25(OH) VITAMIN D 49.1 NG/ML (20.0-100.0)
== END ==
LOC: M LAB 16:33
PROVIDERS: ATTEND Student in an Organized Health Care Education/Training Program
DX: I25.10 Atherosclerotic heart disease of native coronary artery without angina pectoris (principal); I10 Essential (primary) hypertension; M54.50 Low back pain, unspecified; G89.29 Other chronic pain; Z79.899 Other long term (current) drug therapy

== ENCOUNTER 2025-01-09 13:28 | Emergency (ER) | payer OTHER, MEDICAID ==
[~2025-01-09] VITALS: Ht 170.2 cm; Wt 71.8 kg
[2025-01-09 14:47] LABS: BASO # 0.0 10^3/uL (0.0-0.2); BASO % 0.3 % (0.0-1.0); EOS # 0.2 10^3/uL (0.0-0.5); EOS % 1.9 % (0.0-3.0); LYMPH # 0.8 10^3/uL (1.5-5.0); LYMPH % 10.8 % (24.0-44.0); MONO # 0.7 10^3/uL (0.0-0.8); MONO % 9.1 % (2.0-8.0); NEUTROPHILS # 6.0 10^3/uL (1.5-8.5); NEUTROPHILS % 77.6 % (36.0-66.0); PLATELET COUNT, AUTOMATED 239 10^3/uL (150-450)
[2025-01-09 15:00] LABS: C REACTIVE PROTEIN QUANTITATIV 2.52 MG/DL (<1.0); CALCIUM LEVEL 9.2 MG/DL (8.3-10.6); CARBON DIOXIDE LEVEL 28.0 MMOL/L (20-31); CHLORIDE LEVEL 107.0 MMOL/L (98-107); CREATININE FOR GFR 0.96 MG/DL (0.70-1.30); GLOMERULAR FILTRATION RATE 85.0 (>42); POTASSIUM SERUM 4.5 MMOL/L (3.5-5.1); SODIUM LEVEL 144.0 MMOL/L (136-145)
[2025-01-09 15:02] LABS: ERYTHROCYTE SEDIMENTATION RATE 37 mm/hr (0-20)
[2025-01-09] MEDS: TETANUS/DIPHTH/ACEL. PERTUSSIS 0.5 ML SYR IM.IMMUN ONE (15:50)
[2025-01-09] MEDS: CLINDAMYCIN 900 MG in IV 1 EA IV ONE (15:50)
[2025-01-09 18:00] VITALS: BP 108/59
[2025-01-09] MEDS ORDERED: CLEO300C2 PO (18:10)
[2025-01-09 18:13] VITALS: O2SAT 98
[2025-01-09 18:42] VITALS: TEMP 98
[2025-01-12] MEDS ORDERED: GABA-1171 PO (08:07)
[2025-01-12] MEDS ORDERED: THERTAB52 PO (08:07)
== END 2025-01-09 18:43 | disposition home or self-care (01) ==
LOC: M ED 13:28
DX: S60.552A Superficial foreign body of left hand, initial encounter (principal); L02.512 Cutaneous abscess of left hand; I10 Essential (primary) hypertension; E78.5 Hyperlipidemia, unspecified; Z79.02 Long term (current) use of antithrombotics/antiplatelets; Z79.2 Long term (current) use of antibiotics; Z79.899 Other long term (current) drug therapy; Y92.9 Unspecified place or not applicable; Y93.9 Activity, unspecified; Y99.9 Unspecified external cause status
CPT/HCPCS: 73130; 76882; 80048; 85025; 85652; 86140; 87040; 87070; 87077; 87186; 87205; 90471; 90715; 96365; 96366; 99284; J0737

== ENCOUNTER → 2025-01-23 | Outpatient (CLI) | payer OTHER, MEDICAID ==
[~2025-01-23] MED LIST changes: +CLEO300C2 PO; +THERTAB52 PO
== END ==
LOC: M SOG 15:23
PROVIDERS: ATTEND Physician Assistant
DX: M79.645 Pain in left finger(s) (principal); S63.274A Dislocation of unspecified interphalangeal joint of right ring finger, initial encounter; X58.XXXA Exposure to other specified factors, initial encounter; Y92.9 Unspecified place or not applicable

== ENCOUNTER → 2025-01-26 | Outpatient (CLI) | payer OTHER, MEDICAID | LOC: M PLALAB 10:33 | PROVIDERS: ATTEND Physician Assistant | DX: Z12.5 Encounter for screening for malignant neoplasm of prostate (principal) | CPT/HCPCS: 36415; G0103 ==

== ENCOUNTER → 2025-01-31 | Outpatient (CLI) | payer OTHER, MEDICAID | LOC: M SOG 07:25 | PROVIDERS: ATTEND Physician Assistant | DX: M18.11 Unilateral primary osteoarthritis of first carpometacarpal joint, right hand (principal) ==

== ENCOUNTER → 2025-02-24 | Outpatient (CLI) | payer OTHER, MEDICAID | LOC: M SOG 07:20 | PROVIDERS: ATTEND Physician Assistant | DX: M79.645 Pain in left finger(s) (principal) ==

== ENCOUNTER 2025-03-06 09:43 | Day surgery (SDC) | payer OTHER, MEDICAID ==
[~2025-03-06] VITALS: Ht 172.7 cm; Wt 73.9 kg
[~2025-03-06 09:43] MED LIST changes: +LIDOCAINE W/EPINEPHrine 1% 20 ML VIAL XX ONE; +SODIUM BICARBONATE 8.4% INJ 50MEQ/50ML VIAL XX ONE
[2025-03-06 14:05] VITALS: BP 122/59; TEMP 97; O2SAT 100
== END 2025-03-06 14:18 | disposition home or self-care (01) ==
LOC: M SDC 09:43
PROVIDERS: ATTEND Orthopaedic Surgery Hand Surgery
DX: L02.612 Cutaneous abscess of left foot (principal); S61.432A Puncture wound without foreign body of left hand, initial encounter; I10 Essential (primary) hypertension; E78.5 Hyperlipidemia, unspecified; Z79.899 Other long term (current) drug therapy

== ENCOUNTER 2025-03-16 07:33 | Outpatient (RCR) | payer OTHER, MEDICAID ==
[~2025-03-16 07:33] MED LIST changes: -LIDOCAINE W/EPINEPHrine 1% 20 ML VIAL XX ONE; -SODIUM BICARBONATE 8.4% INJ 50MEQ/50ML VIAL XX ONE
== END 2025-03-17 ==
LOC: M PT 07:33
PROVIDERS: ATTEND Physician Assistant Surgical
DX: M16.0 Bilateral primary osteoarthritis of hip (principal)

== ENCOUNTER 2025-03-23 07:35 | Outpatient (RCR) | payer OTHER, MEDICAID ==
[2025-04-13] MEDS ORDERED: PRED10TA2 PO (13:13)
== END 2025-04-16 ==
LOC: M PT 07:35
PROVIDERS: ATTEND Physician Assistant Surgical
DX: M16.0 Bilateral primary osteoarthritis of hip (principal); M87.851 Other osteonecrosis, right femur; M87.852 Other osteonecrosis, left femur

== ENCOUNTER 2025-04-13 09:32 | Emergency (ER) | payer OTHER, MEDICAID ==
[~2025-04-13] VITALS: Ht 170.2 cm; Wt 72.2 kg
[2025-04-13 09:35] VITALS: BP 134/63; TEMP 97.9; O2SAT 100
[2025-04-13] MEDS: IPRATROPIUM 0.5 MG/ALBUTEROL 2.5 MG INH SOL UD 3 ML NEB PRN (11:29)
[2025-04-13 12:37] LABS: BASO # 0.0 10^3/uL (0.0-0.2); BASO % 0.3 % (0.0-1.0); EOS # 0.3 10^3/uL (0.0-0.5); EOS % 3.0 % (0.0-3.0); LYMPH # 1.8 10^3/uL (1.5-5.0); LYMPH % 18.9 % (24.0-44.0); MONO # 0.9 10^3/uL (0.0-0.8); MONO % 9.0 % (2.0-8.0); NEUTROPHILS # 6.6 10^3/uL (1.5-8.5); NEUTROPHILS % 68.6 % (36.0-66.0); PLATELET COUNT, AUTOMATED 266 10^3/uL (150-450)
[2025-04-13 12:58] LABS: ALT/SGPT 20.0 U/L (7.0-40); AST/SGOT 21.0 U/L (<34); CALCIUM LEVEL 9.6 MG/DL (8.3-10.6); CARBON DIOXIDE LEVEL 31.0 MMOL/L (20-31); CHLORIDE LEVEL 101.0 MMOL/L (98-107); CREATININE FOR GFR 1.09 MG/DL (0.70-1.30); GLOMERULAR FILTRATION RATE 73.0 (>42); POTASSIUM SERUM 3.6 MMOL/L (3.5-5.1); SODIUM LEVEL 142.0 MMOL/L (136-145)
[2025-04-13] MEDS ORDERED: PRED10TA2 PO (13:13)
[2025-04-13 13:35] VITALS: O2SAT 97
[2025-04-13] MEDS: ALBUTEROL 90 MCG/ACT 8 GM HFA INHALER INH ONE (13:38)
== END 2025-04-13 14:13 | disposition home or self-care (01) ==
LOC: M ED 09:32
DX: J44.1 Chronic obstructive pulmonary disease with (acute) exacerbation (principal); R05.9 Cough, unspecified; F17.200 Nicotine dependence, unspecified, uncomplicated; F10.10 Alcohol abuse, uncomplicated; Z79.02 Long term (current) use of antithrombotics/antiplatelets; Z79.899 Other long term (current) drug therapy; Z79.52 Long term (current) use of systemic steroids
CPT/HCPCS: 71046; 80048; 80076; 85025; 87486; 87581; 87633; 87798; 87880; 94640; 94664; 96372; 99284; J2919